=== PATIENT | female | born 1960 | race Caucasian/White ===

== ENCOUNTER → 2018-04-09 | Outpatient (CLI) | payer BC ==
[~2018-04-09] MED LIST: ASPIR 8181 MG PO; CARDIZEM CD240 MG PO; ESTRADIOL 1 MG T1 M1 PO; NORVASC5 MG PO; PEPCID40 MG PO; ZANTAC 150MG T150 MG PO
--- NOTE | ~2018-04-09 | PATH ---
[facility] [place] [address] PATHOLOGY RPT PROCEDURE Name: DARLENE HANDY Room #: REG JAYCE Conklin.#: [id number] Admission: 04/09/18 Date of : 58 Discharge: Report #: [id number] Path Case #: [id number] LCA Accession Number: [id number] . 01 Material submitted: . LEFT BREAST MASS, INFERIOR . 01 Clinical history: . Left breast mass . 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 . (SHA:neo; 04/10/2018) MBR/04/10/2018 . 02 Comment: This case is also reviewed by Dr. Abdiel Bonilla. . SYNOPTIC Present in one of six biopsies. Glandular/tubular differentiation 3. Nuclear pleomorphism 2. Mitotic count 1. Overall grade II. Lymphatic invasion not identified. Perineural invasion not identified. Calcification not identified. Predictive breast markers will be ordered on block A1, and once those are available, an additional report will follow. . (CHUNG:neo; 04/10/2018) . 02 Electronically signed: . Aron Ernandez MD, Pathologist NPI- [id number] . 01 Gross description: . Received in formalin labeled "Darlene Handy left," are multiple needle cores of yellow-mccoy fibrofatty tissue measuring 4.1 x 1.6 x 0.7 cm in aggregate dimensions. The tissue submitted in its entirety in cassette A1 through A3. The cold ischemic time is 10 minutes. The total formalin fixation time is 10 hours and 25 minutes. (TSD; 04/09/2018) TOB/TOB . [address] [address] PATHOLOGY RPT PROCEDURE Name: DARLENE HANDY Room #: REG CLGildardo Box#: [id number] Admission: 04/09/18 Date of : 58 Discharge: Report #: [id number] Path Case #: [id number] Pathologist provided ICD-10: C50.912 . 02 CPT . 108881 Specimen Comment: A courtesy copy of this report has been sent to Specimen Comment: [phone], , . Specimen Comment: Report sent to ,DR BAGLEY / DR CROCKER Performed at: [address], [place], [place] [id number] MD Rashad Willoughby MD Phone: [phone] Performed at: [address] [id number] MD Elba Crystal MD Phone: [phone]
== END | disposition home or self-care (01) ==
LOC: RAD 10:22
DX: C50.912 Malignant neoplasm of unspecified site of left female breast (principal); Z88.0 Allergy status to penicillin; Z88.8 Allergy status to other drugs, medicaments and biological substances; Z79.82 Long term (current) use of aspirin; Z79.899 Other long term (current) drug therapy; Z98.890 Other specified postprocedural states

== ENCOUNTER → 2018-04-14 | Outpatient (CLI) | payer BC ==
[~2018-04-14] MED LIST changes: +CENTRUM SILVER1 EAC4 PO; +CINNAMON500 MG PO; +FISH OIL 1,001000 M2 PO; +IRON325 PO; +POTASSIUM99 MG PO; +VITAMIN B COMP1 EAC7 PO; +VITAMIN C1000 MG PO; +VITAMIN D-32000 UNIT PO
== END ==
LOC: MRI 07:02
DX: C50.312 Malignant neoplasm of lower-inner quadrant of left female breast (principal)

== ENCOUNTER 2018-04-16 05:23 | Day surgery (SDC) | payer BC ==
[~2018-04-16] VITALS: Ht 162.6 cm; Wt 76.7 kg
--- NOTE | ~2018-04-16 | O ---
[facility] [place] [address] [address] [place] [address] OPERATIVE REPORT Name: HEENA HANDY Room #: DEP [facility] M.R.#: [id number] Admission: 04/16/18 Attend Phys: Doug Shah MD Discharge: 04/16/18 Date of : 58 Report #: [id number] THIS REPORT FOR: //name// CC: Doug Schneider MD DATE OF SERVICE: 04/16/2018 PREOPERATIVE DIAGNOSIS: Left breast cancer. POSTOPERATIVE DIAGNOSIS: Left breast cancer. PROCEDURES PERFORMED: 1. Left lumpectomy. 2. Left axillary sentinel node biopsy. COMPLICATIONS: None. ESTIMATED BLOOD LOSS: 10 mL. SURGEON: Doug Shah M.D. DESCRIPTION OF PROCEDURE: With the patient under general anesthesia, the breast lesion was identified with preoperative ultrasound. The hematoma is adjacent to the mass located slightly anterior superior. The mass is difficult to see in detail, but was able to visualize at about 06:30 position, where I have seen it pre-biopsy. There was a small benign nodule superior along the same 06:30 position. The lesion was marked with a preoperative ultrasound. The sentinel node was listened to in the axilla and this was marked. The left breast was then prepped and draped in sterile fashion. An ellipse of skin was then excised over the mass. Starting in the medial aspect, where the biopsy track came in. The breast tissue was excised after incising through the skin and superficial fascia layer of the breast. Dissection was carried down towards the pectoralis fascia posteriorly. The excision was then brought in down in the form of ellipse, with the largest ellipse right at the 06:30 position. When this dissection came to superiorly, a cyst was identified. This is what was seen on ultrasound. This was removed. Dissection was then carried beyond the 6 o'clock position and then tapering down again to about the 5 o'clock position. Then, inferiorly it was performed the same way. The lesion was felt to be completely encompassed. I could feel the hematoma and I think I could feel the breast lesion itself. Good margin was felt to be all the way obtained around this. A suture was placed in the superior aspect of the biopsy site; that was a short stitch. Long stitch was placed laterally. Specimen was taken to mammography and the clip that was left on the mammogram was pretty well [address] [address] OPERATIVE REPORT Name: HEENA HANDY Room #: DEP [facility] [place] Isauro#: [id number] Admission: 04/16/18 Attend Phys: Doug Shah MD Discharge: 04/16/18 Date of : 58 Report #: [id number] centered in the lumpectomy specimen. This was then given to pathologist with orientation of the sutures, marking superior and lateral margins. The pathologist happened to be the one that also read her biopsy last , so she is well aware of the past. Hemostasis was obtained. The superficial layer of the breast was closed with 4-0 PDS. Skin was closed with 5-0 PDS running subcuticular fashion. This area was then covered. I changed my gloves. Using different set of instruments, the sentinel node was then biopsied. The Neoprobe was placed in a sterile sleeve. The side of the lymph node was then identified. A 3-cm incision was made in the left axilla. After incising through the skin and subcutaneous tissue of the axillary envelope, I actually identified the edge of the pectoralis muscle and then coming posterior to this, the lymph node was then found. This was lifted out of the axilla and the specimen had two lymph nodes in it. This was removed with cautery and clips. Later on, there was a bleeding site that was suture ligated with 3-0 Vicryl suture. Hemostasis was then obtained. The specimen showed 2 lymph nodes, both had activity; one measured 1600 over 10 seconds, the other one measured 1700. Marking pen was placed over the node that I identified. This was sent to pathology and both of these were evaluated for frozen section and they were negative. Listening to the bed, there was residual activity and this was dissected. There was a lymph node which did not have much activity. The activity was felt to be in transit. There was no significant activity left in the bed. Irrigation was performed. Hemostasis obtained. Subcutaneous tissue was closed with 4-0 PDS, skin was closed with 5-0 PDS. Dermabond was applied to both sides. Fluffy dressing was applied with OpSite placed in both. The patient tolerated the procedure well and taken to the recovery room. By: 2157 [id number] Doug Shah MD /tushar
--- NOTE | ~2018-04-16 | PATH ---
[facility] [address] PATHOLOGY RPT PROCEDURE Name: DARLENE HANDY Room #: DEP [facility] M.R.#: [id number] Admission: 04/16/18 Date of : 58 Discharge: 04/16/18 Report #: [id number] Path Case #: [id number] LCA Accession Number: [id number] . 01 Material submitted: . PART A: LEFT BREAST SENTINEL NODE PART B: LEFT BREAST CARCINOMA PART C: LEFT AXILLA NON SENTINEL NODE . 02 Diagnosis: A. Lymph node "left axillary sentinel lymph nodes (2)": - Two lymph nodes negative for malignancy. - Immunoperoxidase stain AE1/AE3 is also negative. . B. Breast, "left breast lumpectomy": - Infiltrating ductal carcinoma with mucinous features measuring 1.3 cm in greatest dimension, less than 0.1 cm from the anterior margin which is the closest margin. . C. Lymph node (1) "left axilla non-sentinel lymph node": -Reactive changes negative for malignancy. (SHA:tyler; 04/20/2018) . . . Surgical Pathology Cancer Case Summary . INVASIVE CARCINOMA OF THE BREAST: . Procedure ___ Excision (less than total mastectomy) . Specimen Laterality ___ Left . + Tumor Site: Invasive Carcinoma + ___ inferior . Tumor Size ___ Greatest dimension of largest invasive focus >1 mm (specify exact measurement) (millimeters): 13 mm . Histologic Type ___ Invasive ductal carcinoma with mucinous features, Grade II . Histologic Grade (Savanna Histologic Score) . . [facility] [address] [place] [address] PATHOLOGY RPT PROCEDURE Name: DARLENE HANDY Room #: DEP [facility]..#: [id number] Admission: 04/16/18 Date of : 58 Discharge: 04/16/18 Report #: [id number] Path Case #: [id number] Glandular (Acinar)/Tubular Differentiation ___ Score 3 (<10% of tumor area forming glandular/tubular structures) . Nuclear Pleomorphism ___ Score 2 (cells larger than normal with open vesicular nuclei, visible nucleoli, and moderate variability in both size and shape) . Mitotic Rate ___ Score 1 (=3 mitoses per mm2) . Overall Grade ___ Grade 2 (scores of 6 or 7) . . + Tumor Focality + ___ Single focus of invasive carcinoma . Ductal Carcinoma In Situ (DCIS) ___ Not identified . + Lobular Carcinoma In Situ (LCIS) + ___ No LCIS in specimen . Margins . Invasive Carcinoma Margins (required only if residual invasive carcinoma is present in specimen) ___ Uninvolved by invasive carcinoma Distance from closest margin (millimeters): less than 1 mm Specify closest margin: Anterior . Regional Lymph Nodes ___ Uninvolved by tumor cells Number of Lymph Nodes Examined: 3 Number of [place] Nodes Examined: 2 . Treatment Effect ___ No known presurgical therapy . . Pathologic Stage Classification (pTNM, AJCC 8th Edition) . Primary Tumor (Invasive Carcinoma) (pT) ___ pT1c:Tumor >10 mm but =20 mm in greatest dimension . Modifier (required only if applicable) ___ (sn): [place] node(s) evaluated. If 6 or more nodes (sentinel or nonsentinel) are removed, this modifier should not be used. [facility] [address] [place] [address] PATHOLOGY RPT PROCEDURE Name: DARLENE HANDY Room #: DEP [facility]..#: [id number] Admission: 04/16/18 Date of : 58 Discharge: 04/16/18 Report #: [id number] Path Case #: [id number] . Category (pN) ___ pN0: No regional lymph node metastasis identified or ITCs only# . . + Ancillary Studies ____ Previous specimen from [facility], [id number] . Distant Metastasis (pM) (required only if confirmed pathologically in this case) ___ Not applicable . . + Microcalcifications + ___ Not identified . + Clinical History + ___ Palpable mass . . . 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 Estrogen Receptor (ER) Status (Note A) ___ Positive Percentage of cells with nuclear positivity Specify: 95 % Average intensity of staining: ___ Moderate . Progesterone Receptor (PgR) Status (Note A) ___ Positive Percentage of cells with nuclear positivity Specify: 70% Average intensity of staining: ___ Weak to Moderate . HER2 by Immunohistochemistry (Note B) ___ Negative (Score 1+) . HER2 by in situ Hybridization (Note B) ___ Negative (not amplified) . + Ki-67 (Note C) + Percentage of positive nuclei: 20% . Cold Ischemia and Fixation Times ___ Meet requirements specified in latest version of the ASCO/CAP [facility] [address] [place] [address] PATHOLOGY RPT PROCEDURE Name: DARLENE HANDY Room #: DEP [facility] M.R.#: [id number] Admission: 04/16/18 Date of : 58 Discharge: 04/16/18 Report #: [id number] Path Case #: [id number] guidelines . METHODS Fixative ___ Formalin . Estrogen Receptor ___ Laboratory-developed test . Primary Antibody ___ Other (specify): SPF1 . Progesterone Receptor ___ Laboratory-developed test . Primary Antibody ___ 1E2 . HER2 by Immunohistochemistry ___ FDA approved (specify test/vendor): . + Ki-67 + Primary Antibody + ___ 30-9 . + Image Analysis +___ Performed (specify method): Unknown . + Biomarkers Scored by Image Analysis + ___ ER + ___ PgR + ___ HER2 by IHC + ___ Ki-67 QMS/04/21/2018 . 02 Comment: Emr Trainer section B7 is also examined by Dr. Misa Luz for margin status. (SHA:[facility]; 04/20/2018) . 02 Electronically signed: . Aron Ernandez MD, Pathologist NPI- [id number] . 01 Gross description: . A. Specimen received fresh labeled "left axillary sentinel lymph node" and consists of a piece of fibrofatty tissue and in it there are two lymph [address] [address] PATHOLOGY RPT PROCEDURE Name: DARLENE HANDY Room #: DEP [facility]..#: [id number] Admission: 04/16/18 Date of : 58 Discharge: 04/16/18 Report #: [id number] Path Case #: [id number] nodes which were identified also by Dr. Doug Shah and inked with blue ink. On palpation one of them measured 0.7 x 0.5 and the other one measured 0.4 x 0.4 cm. The larger one is bisected and inked red. The smaller one is submitted in toto. . B. The specimen is received in formalin, labeled "Darlene Handy, left breast lumpectomy" and consists of a 83 g breast lumpectomy specimen oriented with a short stitch superior and long stitch lateral. The specimen measures 8.0 cm S-I, 7.0 cm L-M, and 3.2 cm A-P. There is unremarkable superior skin ellipse measuring 4.0 x 0.8 cm. The specimen is inked as follows: superior-blue, inferior-green, medial-red, lateral-yellow, anterior-orange, and posterior-black. It is sectioned from lateral to medial revealing a solid white mass measuring 1.3 x 1.0 x 1.0 cm that extends from the margins as follows: Less than 0.1 cm anterior, 1.5 cm inferior, 1.6 cm superior, 1.5 cm medial, greater than 3 cm lateral, and 1.2 cm posterior. Both the mass and slices lateral/medial to the mass show previous biopsy changes. The remainder of the parenchyma consists of yellow homogeneous adipose tissue with minimal fibrous streaks occupying less than 5% of the parenchyma. A cystic structure is identified posterior to the mass measuring 0.5 x 0.4 cm. No additional masses or lesions are identified. A clip is identified approximately 2 cm lateral from the mass. The specimen was collected at 10:45 AM on 04/16/18 and placed in formalin at 11:10 AM. The cold ischemic time is 25 minutes and the total formalin fixation time is greater than 6 hours but less than 72 hours. Emr Trainer sections are submitted as follows: . B1-B3: Lateral, perpendicular B4-B7: Entire mass with relationship to anterior margin B8: Superior and inferior margins B9: Posterior margin with cystic structure B10-B11: Slice lateral to mass showing previous biopsy changes B12: Slice medial to mass B13-B14: Additional technology sales representative sections lateral to mass with biopsy changes B15-B16: Medial margin, perpendicular . C. The specimen is received in formalin, labeled "Darlene Handy left axilla non-sentinel node" and consists of a segment of yellow soft tissue measuring 3.4 x 2.5 x 1.2 cm and contains a lymph node candidate measuring 2.0 x 1.3 x 0.8 cm. It is serially sectioned and the node is entirely submitted in C1-C4. (SDY; 04/17/2018) . Specimen removed at 10:45 and put in formalin at 11:10 ([facility] 04/16/2018) . . FROZEN SECTION: [address] [address] PATHOLOGY RPT PROCEDURE Name: DARLENE HANDY Room #: DEP [facility].R.#: [id number] Admission: 04/16/18 Date of : 58 Discharge: 04/16/18 Report #: [id number] Path Case #: [id number] A. Lymph node (2) "left axillary sentinel lymph node": - Negative for malignancy by histology. Immunohistochemistry pending. ([facility] 04/16/2018) . Frozen section performed at [facility], [address] [place] [address]. /QTP . 02 Pathologist provided ICD-10: C50.912 . 02 CPT . 817127, 075709, 395506, Y23643 Specimen Comment: A courtesy copy of this report has been sent to Specimen Comment: [phone], . Specimen Comment: Report sent to / DR CROCKER Specimen Comment: A duplicate report has been generated due to demographic updates. Performed at: 01 [facility] [address], [place] [address] MD Rashad Willoughby MD Phone: [phone] Performed at: [address] [id number] MD Elba Crystal MD Phone: [phone]
[2018-04-16 07:23] LABS: HEMATOCRIT 42.4 % (37.0-47.0); HEMOGLOBIN 14.8 gm/dL (12.0-15.0); MCH 34.4 pg (26.0-34.0); MCV 98.3 fL (80.0-100.0); RBC 4.31 mil/uL (4.20-5.00); RDW 12.7 % (10.5-14.5)
[2018-04-16 08:16] VITALS: BP 122/91
[2018-04-16] MEDS ORDERED: NORCO 5-325 TA1 EACH PO (11:50)
[2018-04-16 12:13] VITALS: BP 122/91
== END 2018-04-16 13:00 | disposition home or self-care (01) ==
LOC: TBA 05:23 → OR 05:23
PROVIDERS: Surgery
DX: C50.912 Malignant neoplasm of unspecified site of left female breast (principal); I10 Essential (primary) hypertension; D64.9 Anemia, unspecified; K21.9 Gastro-esophageal reflux disease without esophagitis; Z90.710 Acquired absence of both cervix and uterus; Z98.890 Other specified postprocedural states; Z79.899 Other long term (current) drug therapy; Z88.0 Allergy status to penicillin; Z87.891 Personal history of nicotine dependence; Z88.8 Allergy status to other drugs, medicaments and biological substances; Z79.82 Long term (current) use of aspirin; Z79.891 Long term (current) use of opiate analgesic
CPT/HCPCS: 50010; 50101; 50386; 50417; 51301; 54118; 55317; 56524; 56525; 56526; 62110; 62900; 70005

== ENCOUNTER 2018-06-05 06:07 | Day surgery (SDC) | payer BC ==
[~2018-06-05] VITALS: Ht 160 cm; Wt 81.6 kg
--- NOTE | ~2018-06-05 | O ---
[facility] [place] [address] OPERATIVE REPORT Name: HEENA HANDY Room #: 150-6 [facility] M.R.#: [id number] Admission: 06/05/18 Attend Phys: Doug Shah MD Discharge: Date of : 58 Report #: [id number] THIS REPORT FOR: //name// CC: Doug Schneider DATE OF SERVICE: 06/05/2018 PREOPERATIVE DIAGNOSES: 1. Left breast cancer. 2. Need for Port-A-Cath to facilitate chemotherapy. POSTOPERATIVE DIAGNOSES: 1. Left breast cancer. 2. Need for Port-A-Cath to facilitate chemotherapy. PROCEDURES PERFORMED: Placement of Port-A-Cath via right subclavian approach. COMPLICATIONS: None. ESTIMATED BLOOD LOSS: 5 mL. ANESTHESIA: General. SURGEON: Doug Shah M.D. PROCEDURE NOTE: With the patient under general anesthesia, IV antibiotic, vancomycin 1 gram was given. The right chest and neck was prepped and draped in sterile fashion. Timeout was performed. A 0.25% Marcaine was used to anesthetize the skin underneath the clavicle. An incision about 2.5 cm was made underneath the clavicle. This was carried down to the pectoralis fascia. A pocket was then made inferiorly just above the pectoralis fascia. The pocket was large enough for the port. The patient was then placed in a Trendelenburg position. The right subclavian vein was found using the Seldinger technique without difficulty. The vein was found on the first approach. Wire was placed in the vein. The patient was then taken out of Trendelenburg position. The wire was identified in the superior vena cava. The catheter was then measured to be about 19 cm. The catheter was trimmed. The catheter was then fitted to the port and the special plastic locking device was used. The port and the catheter was then flushed with heparinized saline. A dilator was then placed over the wire. The Peel-Apart sheath was then placed over the wire. Dilator and wire was removed. The catheter was threaded inside the Peel-Apart sheath. The sheath was peeled apart leaving the catheter in the vein. The port was then placed in the pocket. The port was then sewn in two separate places with 2-0 Prolene suture to the fascia. Antibiotic irrigation was then performed. Subcutaneous tissue was closed with 3-0 PDS. Skin was closed with 5-[address] [address] OPERATIVE REPORT Name: HEENA HANDY Room #: 150-6 [facility] M.R.#: [id number] Admission: 06/05/18 Attend Phys: Doug Shah MD Discharge: Date of : 58 Report #: [id number] running in subcuticular fashion. Steri-Strips were applied. The port was accessed with the supply needle, bled through out of the port easily. The port was then flushed with heparinized saline solution. Telfa small OpSite was placed. The patient was awakened and taken to recovery. The patient tolerated the procedure well. By: 12 57 Dogu Shah MD /nt
[~2018-06-05 06:07] MED LIST changes: +CINNAMON PO; +NORCO 5-325 TA1 EACH PO; +VITAMIN D35000 UNI1 PO
[2018-06-05 14:28] VITALS: BP 124/73
--- NOTE | 2018-06-05 15:59 | H ---
[facility] [place] [address] HISTORY AND PHYSICAL Name: HEENA HANDY Room #: 150-6 [facility] M.R.#: [id number] Admission: 06/05/18 Attend Phys: Doug Shah MD Discharge: Date of : 58 Report #: [id number] THIS REPORT FOR: //name// CC: Doug Schneider MD DATE OF SERVICE: 06/05/2018 INTERIM PREOP HISTORY AND PHYSICAL PREOPERATIVE DIAGNOSIS: Recently diagnosed left breast cancer. The patient is recommended to undergo chemotherapy and she is here for port placement to facilitate chemotherapy. HISTORY OF PRESENT ILLNESS: The patient is a 57-year-old who recently underwent lumpectomy and sentinel node biopsy. The patient had a 1.3 cm infiltrating ductal carcinoma with mucinous features, lymph nodes were negative. The patient was seen by Dr. Castro and Oncotype DX was performed and it showed a high recurrence score of 25. The patient was felt to benefit from chemotherapy. The patient is recommended to undergo chemotherapy. The patient is here for Port-A-Cath placement. PAST MEDICAL HISTORY: Has not been changed since her last H and P. ALLERGIES: SHE IS ALLERGIC TO PROPOXYPHENE AND PENICILLIN. MEDICATIONS: She takes aspirin, diltiazem IR. FAMILY HISTORY: No change. SOCIAL HISTORY: No change. PHYSICAL EXAMINATION: GENERAL: A well-nourished female, in no acute distress. HEENT: Pupils react to light. Extraocular muscles are intact. NECK: Soft and supple, no masses. LUNGS: Clear. HEART: Regular rate and rhythm. ABDOMEN: Soft, nondistended, nontender. EXTREMITIES: No swelling in the arm. No cyanosis, clubbing, edema. IMPRESSION: The patient is a 57-year-old who was recently diagnosed with left breast cancer. The patient's Oncotype DX had a fairly high recurrence rate and the patient is recommended to undergo chemotherapy. [place] [address] HISTORY AND PHYSICAL Name: HEENA HANDY Room #: [address] [place] [address] M.R.#: [id number] Admission: 06/05/18 Attend Phys: Doug Shah MD Discharge: Date of : 58 Report #: [id number] placement for treatment of chemotherapy. Procedure will be discussed when she comes in tomorrow. Risks of the procedure will be discussed. The patient wishes to proceed. <ELECTRONICALLY SIGNED> By: Doug Shah MD 06/05/18 1559 [id number] Doug Shah MD /nt
[2018-06-05] MEDS ORDERED: NORCO 5-325 TA1 EACH PO (16:02)
[2018-06-05 16:29] VITALS: BP 124/73
== END 2018-06-05 16:58 | disposition home or self-care (01) ==
LOC: TBA 06:07 → OR 06:07
DX: Z45.2 Encounter for adjustment and management of vascular access device (principal); C50.912 Malignant neoplasm of unspecified site of left female breast; I10 Essential (primary) hypertension; K21.9 Gastro-esophageal reflux disease without esophagitis; Z88.0 Allergy status to penicillin; Z88.8 Allergy status to other drugs, medicaments and biological substances; Z79.82 Long term (current) use of aspirin; Z79.899 Other long term (current) drug therapy; Z87.891 Personal history of nicotine dependence; Z98.890 Other specified postprocedural states; Z90.710 Acquired absence of both cervix and uterus; Z87.19 Personal history of other diseases of the digestive system
CPT/HCPCS: 50010; 50101; 50386; 50403; 51938; 56524; 56525; 62110; 62900; 70005

== ENCOUNTER 2018-11-16 05:30 | Day surgery (SDC) | payer BC ==
[~2018-11-16] VITALS: Ht 160 cm; Wt 102.5 kg
--- NOTE | ~2018-11-16 | H ---
[facility] [place] [address] HISTORY AND PHYSICAL Name: HEENA HANDY Room #: 150-1 [facility] M.R.#: [id number] Admission: 11/16/18 ������������������ Attend Phys: Doug Shah MD Discharge: ������������������ Date of : 58 Report #: [id number] THIS REPORT FOR: //name// CC: Doug Schneider DATE OF SERVICE: 11/16/2018 PREOPERATIVE DIAGNOSIS: Status post chemotherapy for breast cancer, here for Port-A-Cath removal. HISTORY OF PRESENT ILLNESS: The patient is a 57-year-old who was found to have breast cancer at the end of last year. The patient did have a stage 1A breast cancer, but her Oncotype DX showed a unfavorable profile. She was recommended to have chemotherapy. She has finished and now is here for port removal. MEDICATIONS: Ranitidine, Cardizem for coronary artery spasm, low dose aspirin. FAMILY HISTORY: Mother had stroke. 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 She does not smoke and drinks 3 drinks per day. REVIEW OF SYSTEMS: No chest pain, shortness of breath, palpitation. History of coronary artery spasm. No numbness or weakness. No weight loss. IMPRESSION: The patient is a 57-year-old status post treatment for breast cancer. The patient had an unfavorable Oncotype DX score and she underwent chemotherapy. She has done well with chemotherapy, is now ready to have her port removed. The patient is brought in for port removal. This will be performed with IV sedation. ��������������������������������������������� ���������������������������������������� By: ��������������������������������������������� 1131 1144 Doug Shah MD /nt
--- NOTE | ~2018-11-16 | O ---
[facility] [place] [address] OPERATIVE REPORT Name: HEENA HANDY Room #: DEP [facility] M.R.#: [id number] Admission: 11/16/18 ������������������ Attend Phys: Doug Shah MD Discharge: 11/16/18 ������������������ Date of : 58 Report #: [id number] THIS REPORT FOR: //name// CC: Doug Schneider MD DATE OF SERVICE: 11/16/2018 PREOPERATIVE DIAGNOSIS: Left breast cancer, status post chemotherapy, here for Port-A-Cath removal. POSTOPERATIVE DIAGNOSIS: Left breast cancer, status post chemotherapy, here for Port-A-Cath removal. PROCEDURES PERFORMED: Removal of Port-A-Cath. ANESTHESIA: IV sedation, local 0.25% Marcaine. COMPLICATIONS: None. ESTIMATED BLOOD LOSS: 5 mL. SURGEON: Doug Shah M.D. DESCRIPTION OF PROCEDURE: With the patient in the supine position, the right upper chest was prepped and draped in sterile fashion. Timeout was performed. The patient received IV sedation. Local 0.25% Marcaine was used to anesthetize the skin and subcutaneous tissue. The previous incision was utilized. The skin was opened without difficulty. The subcutaneous tissue was dissected using cautery. The catheter was found. The catheter was freed from this surrounding scar tissue and then removed. Pressure was held over the upper part. No bleeding was noted. The port along with the capsule that was formed around the port was then dissected free. The entire capsule was removed. Hemostasis obtained. Subcutaneous tissue was closed with 4-0 PDS. Skin was closed with 5-0 PDS. Steri-Strips applied, 4 x 4, OpSite used for dressing. The patient tolerated the procedure well. ��������������������������������������������� ���������������������������������������� By: ��������������������������������������������� [id number] Doug Shah MD /nt
[~2018-11-16 05:30] MED LIST changes: +ATIVAN0.5 MG PO
[2018-11-16 13:47] VITALS: BP 97/60
[2018-11-16] MEDS ORDERED: NORCO 5-325 TA1 EACH PO (15:57)
[2018-11-16 16:10] VITALS: BP 97/60
--- NOTE | 2018-11-17 09:05 | EKG ---
[place] [address] [facility] [address] [place] [address] ELECTROCARDIOGRAM REPORT Name: HEENA HANDY Room #: DEP [facility].#: [id number] ������������������ Admission: 11/16/18 ������������������ Attend Phys: Doug Shah MD Discharge: 11/16/18 ������������������ Date of : 58 Report #: [id number] ����������������������������������������������������������������� [id number] THIS REPORT FOR: //name// [facility] Test Date: 2018-11-16 Test Time: 13:18:13 Pat Name: HEENA HANDY Department: Room: 150 1 Gender: F Manager Supplier: MAME : 1960 Requested By: Doug Shah Order Number: [id number] MD: Sunil Wasserman Measurements Intervals [place] Rate: 87 P: 50 MT: 170 QRS: 39 QRSD: 90 T: 38 QT: 363 QTc: 437 Interpretive Statements Sinus rhythm Early R-wave progression Compared to ECG 03/06/2015 11:25:17 No significant change was found Electronically Signed On 11-17-2018 9:05:15 CDT by Sunil Wasserman [email or web address] ��������������������������������������������� <ELECTRONICALLY SIGNED> ���������������������������������������� By: Sunil Wasserman MD, [facility] ��������������������������������������������� 11/17/18904 1318 1318 Sunil Wasserman MD, [facility] /EPI
== END 2018-11-16 17:10 | disposition home or self-care (01) ==
LOC: OR 05:30 → TBA 05:30 → OR 10:55
DX: Z45.2 Encounter for adjustment and management of vascular access device (principal); C50.912 Malignant neoplasm of unspecified site of left female breast; I10 Essential (primary) hypertension; K21.9 Gastro-esophageal reflux disease without esophagitis; Z90.710 Acquired absence of both cervix and uterus; Z98.890 Other specified postprocedural states; Z88.0 Allergy status to penicillin; Z87.891 Personal history of nicotine dependence; Z88.8 Allergy status to other drugs, medicaments and biological substances; Z79.899 Other long term (current) drug therapy
CPT/HCPCS: 50010; 50101; 50386; 50403; 56525; 56526; 62110; 62850; 70005

== ENCOUNTER → 2020-04-24 | Outpatient (CLI) | payer OTHER | LOC: CAT 09:48 | PROVIDERS: ATTEND Neuromusculoskeletal Medicine & OMM | DX: Z13.6 Encounter for screening for cardiovascular disorders (principal); I25.10 Atherosclerotic heart disease of native coronary artery without angina pectoris; E78.00 Pure hypercholesterolemia, unspecified ==

== ENCOUNTER → 2020-05-02 | Outpatient (CLI) | payer BC, OTHER | LOC: SJCVCIMAG 07:32 | PROVIDERS: ATTEND Internal Medicine | DX: I08.3 Combined rheumatic disorders of mitral, aortic and tricuspid valves (principal); I25.10 Atherosclerotic heart disease of native coronary artery without angina pectoris ==

== ENCOUNTER → 2020-05-04 | Outpatient (CLI) | payer BC, OTHER | LOC: SJCVCIMAG 07:31 | PROVIDERS: ATTEND Internal Medicine | DX: I25.10 Atherosclerotic heart disease of native coronary artery without angina pectoris (principal); R00.0 Tachycardia, unspecified; E78.5 Hyperlipidemia, unspecified; K21.9 Gastro-esophageal reflux disease without esophagitis; Z79.899 Other long term (current) drug therapy; Z87.891 Personal history of nicotine dependence ==